=== PATIENT | male | born 2000 | race Caucasian/White ===

== ENCOUNTER 2022-02-13 08:49 | Emergency (ER) | payer BC ==
[2022-02-13 09:55] LABS: Urine Blood Negative (Negative); Urine Glucose Negative (Negative); Urine Protein Negative (Negative)
[2022-02-13] MEDS ORDERED: ONDANSETRON 4 MG/2 ML VIAL ONE (10:05)
[2022-02-13] MEDS ORDERED: NA CHLORIDE 0.9% 1,000 ML ONE (10:05)
[2022-02-13 10:07] LABS: Absolute Lymphocytes (CBC) 0.9 K/uL (0.7-4.9); Hematocrit 44.2 % (39.6-49.0); Lymphocytes % 10.8 % (15.3-44.8); MCV 90.6 fL (80-100); MPV 7.6 fL (7.6-11.3); RBC Red Blood Cell Count 4.88 M/uL (4.33-5.43)
--- NOTE | 2022-02-13 10:20 | RAD REPORT ---
EXAM DESCRIPTION: US - Extremity Venous Uni Ltd - 02/13/2022 10:13 am CLINICAL HISTORY: pain, swelling Leg swelling and edema. COMPARISON: No comparisons FINDINGS: Left lower extremity venous system was interrogated with Doppler technique. Normal flow, c ompressibility and augmentation was noted. There is no DVT present. IMPRESSION: No evidence of left lower extremity deep venous thrombosis.
[2022-02-13 10:24] LABS: Albumin 3.5 g/dL (3.4-5.0); Bilirubin Total 1.3 mg/dL (0.2-1.0); Protein, Total 7.5 g/dL (6.4-8.2)
--- NOTE | 2022-02-13 11:03 | RAD REPORT ---
EXAM DESCRIPTION: CTAbdomen Pelvis W Contrast - 02/13/2022 10:54 am CLINICAL HISTORY: Abdominal pain. abdominal pain, hematochezia COMPARISON: No comparisons TECHNIQUE: Biphasic CT imaging of the abdomen and pelvis was performed with 100 ml non-ionic IV cont rast. All CT scans are performed using dose optimization technique as appropriate and may include automated exposure control or mA/KV adjustment according to patient size. FINDINGS: The lung bases are clear. The liver, spleen, pancreas, adrenal glands and kidneys are within normal limits. No bowel obstruction, free air, free fluid or abscess. There is mild colon wall thickening seen parti cularly in the transverse as well as the rectosigmoid colon. This most likely represents colitis. The appendix is normal. No evidence of significant lymphadenopathy. No suspicious bony findings. IMPRESSION: Mild to moderate colitis pattern is present. This may be infectious in etiology or relat ed to underlying inflammatory bowel disease.
--- NOTE | 2022-02-13 12:19 | ER ---
Nurse's Notes [facility] Name: Morgan Ponce Age: 21 yrs Sex: Male : 2000 Arrival Date: 02/13/2022 Time: 08:52 Bed 19 Private MD: Saeed Humphrey Diagnosis: Colitis Presentation: 02/13 09:02 Chief complaint: Patient states: Pt reports hx of Chrons disease with increased jh6 diarrhea, mucous and bloody discharge x2 days. States he just "got off steroids" after 6 months of regular dosing. States low-grade temp last night. Pt also reporting possible spider bite to left posterior lower leg. Reports calf is swollen and aching. Small pustule, no redess noted. Coronavirus screen: Vaccine status: Patient reports receiving the 1st dose of the Covid vaccine. Client denies travel out of the [place] in the last 14 days. Ebola Screen: Patient negative for fever greater than or equal to 101.5 degrees Fahrenheit, and additional compatible Ebola Virus Disease symptoms Patient denies exposure to infectious person. Patient denies travel to an Ebola-affected area in the 21 days before illness onset. Initial Sepsis Screen: Does the patient meet any 2 criteria? No. Patient's initial sepsis screen is negative. Does the patient have a suspected source of infection? No. Patient's initial sepsis screen is negative. Risk Assessment: Do you want to hurt yourself or someone else? Patient reports no desire to harm self or others. Onset of symptoms was January 30, 2022. 09:02 Method Of Arrival: Ambulatory [facility] 09:02 Acuity: TAPAN 3 6 Triage Assessment: 09:09 Bite description: bite sustained to left calf is from insect by unknown insect, animal [facility] information:. General: Appears in no apparent distress. Behavior is calm, cooperative. Pain: Denies pain. 10:06 Bite description: animal information: vaccination(s) is not applicable. jd3 Historical: - Allergies: 09:09 No Known Allergies; 6 - Home Meds: 09:09 None [Active]; 6 - PMHx: 09:09 Crohn's disease; 6 - PSHx: 09:09 None; 6 - Immunization history:: Client reports receiving the Sheldon \\T\\ Sheldon single-dose vaccine. - Social history:: Smoking status: Patient denies any tobacco usage or history of. Patient uses alcohol, weekly. Screenin:06 Abuse screen: Denies threats or abuse. Nutritional screening: No deficits noted. jd3 Tuberculosis screening: No symptoms or risk factors identified. Fall Risk Ambulatory Aid- None/Bed Rest/Nurse Assist (0 pts). Gait- Normal/Bed Rest/Wheelchair (0 pts) Mental Status- Oriented to own ability (0 pts). Total Alvarez Fall Scale indicates No Risk (0-24 pts). Assessment: 09:59 General: Appears in no apparent distress. comfortable, Behavior is calm, cooperative, jd3 appropriate for age. Pain: Complains of pain in left calf Quality of pain is described as aching, tender. Neuro: Mccann Agitation-Sedation Scale (RASS): 0 - Alert and Calm Level of Consciousness is awake, alert, obeys commands, Oriented to person, place, time, situation. Cardiovascular: Capillary refill < 3 seconds Patient's skin is warm and dry. Pulses are palpable in right dorsalis pedis artery and left dorsalis pedis artery. Respiratory: Airway is patent Respiratory effort is even, unlabored, Respiratory pattern is regular, symmetrical, Denies cough, shortness of breath. GI: Abdomen is non-distended, Abd is soft and non tender X 4 quads. Reports lower abdominal pain, upper abdominal pain, diarrhea, bloody stool, nausea. : No signs and/or symptoms were reported regarding the genitourinary system. EENT: No signs and/or symptoms were reported regarding the EENT system. Derm: Skin is intact, Skin is dry, Skin is normal, Skin temperature is warm. Musculoskeletal: Circulation, motion, and sensation intact. Range of motion: intact in all extremities, Reports swelling in left calf. 11:10 Reassessment: Patient appears in no apparent distress at this time. Patient and/or jd3 family updated on plan of care and expected duration. Pain level reassessed. Patient is alert, oriented x 3, equal unlabored respirations, skin warm/dry/pink. reported continued left calf pain. 12:50 Reassessment: Patient appears in no apparent distress at this time. Patient and/or jd3 family updated on plan of care and expected duration. Pain level reassessed. Patient is alert, oriented x 3, equal unlabored respirations, skin warm/dry/pink. Vital Signs: 09:02 BP 134 / 86; Pulse 86; Resp 18; Temp 98.3; Pulse Ox 97% ; Weight 86.18 kg; Height 6 ft. 6 2 in. (187.96 cm); Pain 0/10; 10:08 BP 117 / 80; Pulse 76; Resp 18; Pulse Ox 99% on R/A; jd3 11:11 BP 126 / 64; Pulse 65; Resp 17; Pulse Ox 98% on R/A; jd3 12:51 BP 122 / 74; Pulse 75; Resp 16; Pulse Ox 98% on R/A; jd3 09:02 Body Mass Index 24.39 (86.18 kg, 187.96 cm) [facility] ED Course: 08:52 Patient arrived in ED. mr 08:52 Jordon Razo PA is PHCP. jmm 08:52 Umang Murdock DO is Attending Physician. [facility] 08:53 Saeed Humphrey is Private Physician. mr 09:[address] [facility] 09:13 Arm band placed on right wrist. Patient placed in an exam room, Patient Provider to see [facility] pt in triage. 09:18 Blake Whitt, RN is Primary Nurse. jd3 10:05 Inserted saline lock: 20 gauge in right antecubital area, using aseptic technique. jd3 Blood collected. 10:06 Patient has correct armband on for positive identification. Bed in low position. Call jd3 light in reach. Side rails up X 1. Adult w/ patient. Pulse ox on. NIBP on. 10:14 US Extremity Venous Unilateral Ltd In Process Unspecified. EDMS 10:43 CT Abd/Pelvis - IV Contrast Only In Process Unspecified. EDMS 12:17 Jerry Whatley MD is Referral Physician. jmm 12:50 No provider procedures requiring assistance completed. IV discontinued, intact, jd3 bleeding controlled, No redness/swelling at site. Pressure dressing applied. Administered Medications: 10:17 Drug: NS 0.9% 1000 ml Route: IV; Rate: 1 bolus; Site: right antecubital; jd3 11:00 Follow up: Response: No adverse reaction; IV Status: Completed infusion; IV Intake: jd3 1000ml 10:18 Drug: Zofran (Ondansetron) 4 mg Route: IVP; Site: right antecubital; jd3 11:00 Follow up: Response: No adverse reaction jd3 Medication: 10:06 VIS not applicable for this client. jd3 Intake: 11:00 IV: 1000ml; Total: 1000ml. jd3 Outcome: 12:18 Discharge ordered by . zhao 12:50 Discharged to home ambulatory, with family. jd3 12:50 Condition: stable 12:50 Discharge instructions given to patient, family, Instructed on discharge instructions, follow up and referral plans. medication usage, Demonstrated understanding of instructions, follow-up care, medications, Prescriptions given X 3. 12:53 Patient left the ED. jd3 Signatures: Dispatcher [employer] EDMS Jordon Razo PA PA jmm RiveraRuth WhittBlake RN RN jCheryl Prabhakar RN RN jh6 Corrections: (The following items were deleted from the chart) 10:01 09:59 Cardiovascular: Capillary refill < 3 seconds Patient's skin is warm and dry. jd3 jd3
--- NOTE | 2022-02-13 12:19 | EDPHYS ---
Physician Documentation [facility] Name: Morgan Ponce Age: 21 yrs Sex: Male : 2000 Arrival Date: 02/13/2022 Time: 08:52 Bed 19 Private MD: Saeed Humphrey ED Physician Umang Murdock HPI: 02/13 08:52 This 21 yrs old Male presents to ER via Ambulatory with complaints of Crohn's Flare up, jmm Insect Bite. 08:52 The patient presents to the emergency department with nausea, diarrhea, abdominal pain. jmm Onset: The symptoms/episode began/occurred gradually, 1 week(s) ago. This is a 21 year old male with a history of crohns that presents to the ED with complaints of generalized abdominal pain, bloody diarrhea beginning approx 1 week ago he attributes to a crohns flare. Patient also states he developed left calf swelling yesterday. Patient unsure if he injured his calf. . Historical: - Allergies: 09:09 No Known Allergies; [facility] - Home Meds: 09:09 None [Active]; [facility] - PMHx: 09:09 Crohn's disease; [facility] - PSHx: 09:09 None; [facility] - Immunization history:: Client reports receiving the Sheldon \T\ Sheldon single-dose vaccine. - Social history:: Smoking status: Patient denies any tobacco usage or history of. Patient uses alcohol, weekly. ROS: 08:52 Constitutional: Negative for fever, chills, and weight loss, Cardiovascular: Negative jm for chest pain, palpitations, and edema, Respiratory: Negative for shortness of breath, cough, wheezing, and pleuritic chest pain. 08:52 Abdomen/GI: Positive for abdominal pain, rectal bleeding. 08:52 MS/extremity: Positive for swelling. 08:52 All other systems are negative. Exam: 08:52 Constitutional: This is a well developed, well nourished patient who is awake, alert, jmm and in no acute distress. Head/Face: atraumatic. Eyes: EOMI, no conjunctival erythema appreciated ENT: Moist Mucus Membranes Neck: Trachea midline, Supple Chest/axilla: Normal chest wall appearance and motion. Cardiovascular: Regular rate and rhythm. No edema appreciated Respiratory: Normal respirations, no respiratory distress appreciated Abdomen/GI: Non distended Back: Normal ROM Vital Signs: 09:02 BP 134 / 86; Pulse 86; Resp 18; Temp 98.3; Pulse Ox 97% ; Weight 86.18 kg; Height 6 ft. 6 2 in. (187.96 cm); Pain 0/10; 10:08 BP 117 / 80; Pulse 76; Resp 18; Pulse Ox 99% on R/A; jd3 11:11 BP 126 / 64; Pulse 65; Resp 17; Pulse Ox 98% on R/A; jd3 12:51 BP 122 / 74; Pulse 75; Resp 16; Pulse Ox 98% on R/A; jd3 09:02 Body Mass Index 24.39 (86.18 kg, 187.96 cm) [facility] MDM: 08:52 Patient medically screened. [facility] 12:17 Data reviewed: vital signs, nurses notes. Counseling: I had a detailed discussion with zhao the patient and/or guardian regarding: the historical points, exam findings, and any diagnostic results supporting the discharge/admit diagnosis, lab results, radiology results, the need for outpatient follow up, to return to the emergency department if symptoms worsen or persist or if there are any questions or concerns that arise at home. 02/13 09:08 Order name: CBC with Diff; Complete Time: 10:18 [facility] 02/13 09:08 Order name: CMP; Complete Time: 10:38 [facility] 02/13 09:08 Order name: Lipase; Complete Time: 10:38 [facility] 02/13 09:12 Order name: US Extremity Venous Unilateral Ltd; Complete Time: 10:23 [facility] 02/13 09:55 Order name: Urine Dipstick-Ancillary; Complete Time: 10:05 [facility] 02/13 09:08 Order name: IV Saline Lock; Complete Time: 09:49 [facility] 02/13 09:08 Order name: Labs collected and sent; Complete Time: 09:49 [facility] 02/13 09:08 Order name: Urine Dipstick-Ancillary (obtain specimen); Complete Time: 09:49 [facility] 02/13 10:23 Order name: CT Abd/Pelvis - IV Contrast Only; Complete Time: 11:34 [facility] Administered Medications: 10:17 Drug: NS 0.9% 1000 ml Route: IV; Rate: 1 bolus; Site: right antecubital; d3 11:00 Follow up: Response: No adverse reaction; IV Status: Completed infusion; IV Intake: jd3 1000ml 10:18 Drug: Zofran (Ondansetron) 4 mg Route: IVP; Site: right antecubital; jd3 11:00 Follow up: Response: No adverse reaction jd3 Disposition: 02/14 09:25 Co-signature as Attending Physician, Umang Murdock DO I was immediately available on-site ms3 in the Emergency Department for consultation in the care of the patient.. Disposition Summary: 02/13/22 12:18 Discharge Ordered Location: Home [facility] Condition: Stable [facility] Diagnosis - Colitis [facility] Followup: [facility] - With: Jerry Whatley MD - When: 2 - 3 days - Reason: Recheck today's complaints, Continuance of care, Re-evaluation by your physician Discharge Instructions: - Discharge Summary Sheet [facility] - Colitis [facility] Forms: - Medication Reconciliation Form [facility] - Thank You Letter [facility] - Antibiotic Education [facility] - Prescription Opioid Use [facility] Prescriptions: - Flagyl 500 mg Oral Tablet - take 1 tablet by ORAL route every 6 hours for 10 days; 40 tablet; Refills: 0, [facility] Product Selection Permitted - Cipro 500 mg Oral Tablet - take 1 tablet by ORAL route every 12 hours for 10 days; 20 tablet; Refills: 0, [facility] Product Selection Permitted - Prednisone 20 mg Oral Tablet - take 3 tablets by ORAL route once daily for 5 days Please take 3 tabs by mouth [facility] daily for 3 days, then take 2 tabs by mouth daily for 3 days, then take 1 tab by mouth daily for 3 days, then take one half tab by mouth daily for 3 days; 20 tablet; Refills: 0, Product Selection Permitted Signatures: Dispatcher [employer] EDMS Sasha Perez Joel, PA PA [facility] Blake Whitt RN RN jd3 Umang Murdock DO DO ms3 Cheryl Obando RN RN jh6 Corrections: (The following items were deleted from the chart) 02/13 10:58 10:41 Labs - recollect needed ordered. bd jd3 12:41 09:10 TYPE AND SCREEN+[id number] ordered. EDMS EDMS
[2022-02-13 13:34] VITALS: TEMP 98.3
[2022-02-13 13:39] VITALS: O2SAT 98
[2022-02-13 13:41] VITALS: BP 122/74
--- OUTSIDE RECORDS SUMMARY | 2022-02-14 15:23 | XMS REPORT | Continuity of Care Document ---
:2000 Author Organization [facility] t Address [address] [place] [address] Dr. Treviño [address] [place] [id number] Care Team Providers Name Role Phone Milagro Attending Clinician Unavailable Problems This patient has no known problems. Allergies, Adverse Reactions, Alerts This patient has no known allergies or adverse reactions. Medications This patient has no known medications. Procedures This patient has no known procedures. Encounters Start End Encounter Admission Attending Care Care Encounter Source Date/Time Date/Time Type Type Clinicians Facility Department ID 2022-01-[address] [facility] [id number] Common 14:55:02 [facility] 2022-01-07 Outpatient [facility] [id number] Common 15:45:05 [facility] Results This patient has no known results.
== END 2022-02-13 12:53 | disposition home or self-care (01) ==
LOC: EDBD 08:49 → ER 08:49
DX: K52.9 Noninfective gastroenteritis and colitis, unspecified (principal)
CPT/HCPCS: 85025; 36415; 81003; 83690; 80053; 74177; 93971; Q9967; J7030; J2405